=== PATIENT | female | born 1955 | race Caucasian/White ===

== ENCOUNTER → 2023-07-05 09:38 | Outpatient (REF) | payer OTHER, SELFPAY | LOC: HWRAD 09:38 | PROVIDERS: ATTENDING PHYSICIAN Physician Assistant Medical | DX: M85.80 Other specified disorders of bone density and structure, unspecified site (principal) | CPT/HCPCS: 77080 ==

== ENCOUNTER → 2024-01-31 10:41 | Outpatient (REF) | payer MEDICARE, OTHER, SELFPAY | LOC: HWWDC 10:41 | PROVIDERS: ATTENDING PHYSICIAN Obstetrics & Gynecology Gynecology; FAMILY PHYSICIAN Physician Assistant Medical | DX: Z12.31 Encounter for screening mammogram for malignant neoplasm of breast (principal) | CPT/HCPCS: 77063; 77067 ==

== ENCOUNTER → 2024-07-28 12:42 | Outpatient (REF) | payer MEDICARE, OTHER, SELFPAY | LOC: HWRAD 12:42 | PROVIDERS: ATTENDING PHYSICIAN Urology; FAMILY PHYSICIAN Physician Assistant Medical | DX: N39.41 Urge incontinence (principal); N39.3 Stress incontinence (female) (male); R35.1 Nocturia; N95.8 Other specified menopausal and perimenopausal disorders | CPT/HCPCS: 76770; 76856 ==

== ENCOUNTER → 2024-08-14 11:53 | Outpatient (REF) | payer MEDICARE, OTHER, SELFPAY | LOC: HWRAD 11:53 | PROVIDERS: ATTENDING PHYSICIAN Physician Assistant Medical | DX: M25.531 Pain in right wrist (principal); M25.532 Pain in left wrist | CPT/HCPCS: 73110 ==

== ENCOUNTER → 2024-10-01 13:08 | Outpatient (REF) | payer MEDICARE, OTHER, SELFPAY | LOC: HWRCS 13:08 | PROVIDERS: ATTENDING PHYSICIAN Internal Medicine Cardiovascular Disease; FAMILY PHYSICIAN Physician Assistant Medical | DX: I34.0 Nonrheumatic mitral (valve) insufficiency (principal); M25.562 Pain in left knee | CPT/HCPCS: 73564; 93306 ==

== ENCOUNTER → 2024-11-06 18:42 | Outpatient (REF) | payer MEDICARE, OTHER, SELFPAY | LOC: MRI 18:42 | PROVIDERS: ATTENDING PHYSICIAN Internal Medicine Rheumatology; FAMILY PHYSICIAN Physician Assistant Medical | DX: M25.462 Effusion, left knee (principal) | CPT/HCPCS: 73721 ==